=== PATIENT | female | born 1960 ===

== ENCOUNTER 2018-11-07 08:19 | Outpatient (CLI) | payer OTHER | END 2018-11-07 08:21 | disposition home or self-care (01) | LOC: SONOGRAMA 08:19 | DX: N84.0 Polyp of corpus uteri (principal); N60.12 Diffuse cystic mastopathy of left breast; N60.11 Diffuse cystic mastopathy of right breast; N63.10 Unspecified lump in the right breast, unspecified quadrant; N63.20 Unspecified lump in the left breast, unspecified quadrant; N83.01 Follicular cyst of right ovary; N94.10 Unspecified dyspareunia; R31.21 Asymptomatic microscopic hematuria; N95.2 Postmenopausal atrophic vaginitis; N76.2 Acute vulvitis ==